=== PATIENT | male | born 1975 | race Asian ===

== ENCOUNTER → 2017-02-02 | Outpatient (CLI) | payer BC | LOC: COL.RAD 01-26 11:15 | DX: K76.9 Liver disease, unspecified (principal); K80.80 Other cholelithiasis without obstruction; K83.8 Other specified diseases of biliary tract ==

== ENCOUNTER → 2017-02-23 | Outpatient (CLI) | payer BC | LOC: COL.RAD 07:30 | DX: K76.9 Liver disease, unspecified (principal) | CPT/HCPCS: Q9967 ==